=== PATIENT | male | born 1980 | race Caucasian/White ===

== ENCOUNTER 2019-04-15 14:00 | Emergency (ER) | payer BC ==
--- NOTE | 2019-04-15 14:09 | EDM.PDOC ---
ED HPI GENERAL MEDICAL PROBLEM - General Chief Complaint: Laceration Stated Complaint: FISH HOOK IN RT 4TH FINGER Time Seen by Provider: 04/15/19 14:08 Source of Information: Reports: Patient, RN, RN Notes Reviewed History Limitations: Reports: No Limitations - History of Present Illness INITIAL COMMENTS - FREE TEXT/NARRATIVE: Pt presents to ER with c/o fish hook in Rt 4th finger. Denies any other injury. Last Tetanus vaccine is unknown, but presumed to be >10yrs per pt. Onset: Today Quality: Reports: Ache Severity: Mild Improves with: Reports: None Worsens with: Reports: None Associated Symptoms: Reports: No Other Symptoms - Related Data Allergies Allergy/AdvReac Type Severity Reaction Status Date / Time Penicillins Allergy Other Verified 04/15/19 14:07 Home Meds: Home Meds Lisinopril 20 mg PO DAILY 04/15/19 [History] atorvaSTATin [Lipitor] 10 mg PO DAILY 04/15/19 [History] Social & Family History - Family History Family Medical History: Noncontributory - Living Situation & Occupation Living situation: Reports: , with Spouse Occupation: Employed ED ROS GENERAL - Review of Systems Review Of Systems: ROS reveals no pertinent complaints other than HPI. ED EXAM, GENERAL - Physical Exam Exam: See Below Exam Limited By: No Limitations General Appearance: Alert, WD/WN, No Apparent Distress Respiratory/Chest: No Respiratory Distress Extremities: Normal Range of Motion, Other (Fish hook in right 4th finger, no active bleeding, no signs of infection or swelling.). No: Joint Swelling, Redness Neurological: Alert, No Motor/Sensory Deficits Psychiatric: Normal Mood ED GENERAL MEDICAL PROCEDURES - Additional/Other Procedure(s) Other (Free Text) Procedure(s): Fish hook removal right 4th finger. Area cleaned and prepped by RN with hibiclens and sterile water. Area of fish hook locally blocked with lidocaine 1 % 5cc. Using clean tech. the eye of the hook and lure were cut free and removed with side cutter. The hook shank grasped with needle nosed plier and advanced until the hook and iemlda were exposed through the skin and removed with side cutter. The remaining hook backed out the entry wound. No residual foreign body. Wound was cleansed, and dried, bacitracin ointment applied, and dressing by RN. No complications. Course - Vital Signs Last Recorded V/S: Last Vital Signs Temp 96.9 F 04/15/19 14:11 Pulse 70 04/15/19 14:11 Resp 16 04/15/19 14:11 BP 158/94 H 04/15/19 14:11 Pulse Ox 100 04/15/19 14:11 - Orders/Labs/Meds Orders: Active Orders 24 hr Category Date Time Status Vaccines to be Administered [RC] PER UNIT ROUTINE Care 04/15/19 14:13 Ordered Diphth,Pertuss(Acell),Tet Vac [Adacel] Med 04/15/19 14:13 Once 0.5 ml IM .ONCE ONE Meds: Medications Discontinued Medications Generic Name Dose Route Start Last Admin Trade Name Freq PRN Reason Stop Dose Admin Bacitracin 1 dose 04/15/19 14:09 Bacitracin Oint 1 Gm TOP 04/15/19 14:10 ONETIME ONE Lidocaine HCl 30 ml 04/15/19 14:09 Xylocaine-Mpf 1% INJECT 04/15/19 14:10 ONETIME ONE Departure - Departure Time of Disposition: 14:15 Disposition: Home, Self-Care 01 Condition: Good Clinical Impression: Fish hook injury of finger of right hand Qualifiers: Encounter type: initial encounter Qualified Code(s): S69.91XA - Unspecified injury of right wrist, hand and finger(s), initial encounter - Discharge Information *PRESCRIPTION DRUG MONITORING PROGRAM REVIEWED*: No *COPY OF PRESCRIPTION DRUG MONITORING REPORT IN PATIENT DEVON: No Instructions: Puncture Wound, Croa-uv-Vecw Forms: ED Department Discharge Additional Instructions: Follow up in clinic if any signs of infection develop. - My Orders Last 24 Hours: My Active Orders 04/15/19 14:13 Vaccines to be Administered [RC] PER UNIT ROUTINE Diphth,Pertuss(Acell),Tet Vac [Adacel] 0.5 ml IM .ONCE ONE - Assessment/Plan Last 24 Hours: My Active Orders 04/15/19 14:13 Vaccines to be Administered [RC] PER UNIT ROUTINE Diphth,Pertuss(Acell),Tet Vac [Adacel] 0.5 ml IM .ONCE ONE
[2019-04-15] MEDS: Diphtheria,Pertussis(Acell),Tetanus Vaccine 0.5 ML SDV IM ONE (14:26)
[2019-04-15] MEDS: Lidocaine 1% 30 ML SDV INJECT ONE (14:29)
[2019-04-15] MEDS: Bacitracin Oint 1 GM U/D Packet TOP ONE (14:29)
== END 2019-04-15 14:45 | disposition home or self-care (01) ==
LOC: DL.ED 14:00
DX: S60.454A Superficial foreign body of right ring finger, initial encounter (principal); Z88.0 Allergy status to penicillin; Z23 Encounter for immunization; Z79.899 Other long term (current) drug therapy; W45.8XXA Other foreign body or object entering through skin, initial encounter
CPT/HCPCS: 90471; 90715; 99283; J2001